=== PATIENT | male | born 2000 | race African-American/Black ===

== ENCOUNTER 2021-02-13 16:12 | Emergency (ER) | payer OTHER ==
[2021-02-13] MEDS ORDERED: Ondansetron ODT 4 MG TAB ONE (16:41)
== END 2021-02-13 16:45 | disposition home or self-care (01) ==
LOC: MADERS 16:12
DX: T67.5XXA Heat exhaustion, unspecified, initial encounter (principal); F17.210 Nicotine dependence, cigarettes, uncomplicated
CPT/HCPCS: 99283; Q0162

== ENCOUNTER 2021-03-06 14:36 | Emergency (ER) | payer OTHER, SELFPAY | END 2021-03-06 15:28 | disposition home or self-care (01) | LOC: MADERS 14:36 | DX: L25.5 Unspecified contact dermatitis due to plants, except food (principal); F17.210 Nicotine dependence, cigarettes, uncomplicated | CPT/HCPCS: 99282 ==

== ENCOUNTER 2021-03-16 14:22 | Emergency (ER) | payer SELFPAY | END 2021-03-16 15:30 | disposition left against medical advice (07) | LOC: MADERS 14:22 | DX: Z53.21 Procedure and treatment not carried out due to patient leaving prior to being seen by health care provider (principal) ==

== ENCOUNTER 2021-03-25 11:47 | Emergency (ER) | payer SELFPAY | END 2021-03-25 14:00 | disposition home or self-care (01) | LOC: MADERS 11:47 | DX: E86.0 Dehydration (principal); F17.210 Nicotine dependence, cigarettes, uncomplicated | CPT/HCPCS: 99284 ==

== ENCOUNTER 2021-04-09 03:56 | Emergency (ER) | payer SELFPAY ==
[2021-04-09] MEDS ORDERED: NEOMYCIN-POLYMYXIN-HC EAR SUSP 200 DROP/10 ML BOT ONE (04:16)
== END 2021-04-09 04:39 | disposition home or self-care (01) ==
LOC: MADERS 03:56
DX: T16.1XXA Foreign body in right ear, initial encounter (principal); F17.210 Nicotine dependence, cigarettes, uncomplicated
CPT/HCPCS: 69200

== ENCOUNTER 2023-02-11 15:33 | Emergency (ER) | payer OTHER, SELFPAY ==
[2023-02-11] MEDS ORDERED: Lactated Ringer's 2,000 ML ONE (16:29)
[2023-02-11 17:01] LABS: ALT (SGPT) 32 U/L (8-55); AST (SGOT) 28 U/L (5-34); Albumin 4.9 g/dL (3.5-5.0); Alkaline Phosphatase 75 U/L (40-110); Anion Gap 20 mmol/L (10-20); BUN (Urea Nitrogen) 15 mg/dL (8.9-20.6); Bilirubin, Total 2.2 mg/dL (0.2-1.2); CK (CPK) 458 U/L (30-200); Calc. Creatinine Clearance 0 mL/min (70-130); Calcium 10.3 mg/dL (7.8-10.44); Carbon Dioxide 20 mmol/L (22-29); Chloride 102 mmol/L (98-107); Estimated GFR 85; Globulin 2.7 g/dL (2.4-3.5); Glucose 74 mg/dL (70-105); Potassium 3.9 mmol/L (3.5-5.1); Protein, Total 7.6 g/dL (6.0-8.3); Sodium 138 mmol/L (136-145)
[2023-02-11 17:12] LABS: Lymphocytes 20 % (21-51); MDiff Complete? YES; Mean Corpuscular HGB CONC 34.6 g/dL (32.0-36.0); Mean Corpuscular Hemoglobin 33.4 pg (27.0-31.0); Mean Corpuscular Volume 96.3 fl (78.0-98.0); Mean Platelet Volume 11.1 fL (7.4-10.4); Monocytes 5 % (0-10); Neutrophil 56 % (42-75); Platelet Count 241 10x3/uL (130-400); RBC Distribution Width 10.7 % (11.5-14.5); Reactive Lymphocytes 17 % (0-10); Red Blood Cell (RBC) Count 4.79 mill/uL (4.70-6.10); White Blood Cell (WBC) Count 8.5 10x3/uL (4.8-10.8)
[2023-02-11 17:13] LABS: Eosinophils 2 % (0-10); Platelet Adequacy Comment Appears Adequate
== END 2023-02-11 18:18 | disposition home or self-care (01) ==
LOC: MADERS 15:33
DX: T67.5XXA Heat exhaustion, unspecified, initial encounter (principal); E86.0 Dehydration; E80.7 Disorder of bilirubin metabolism, unspecified; F17.210 Nicotine dependence, cigarettes, uncomplicated; X32.XXXA Exposure to sunlight, initial encounter; Y93.89 Activity, other specified; Y92.69 Other specified industrial and construction area as the place of occurrence of the external cause
CPT/HCPCS: 80053; 82550; 83735; 85025; 93005; 94760; 96360; 96361; J7120

== ENCOUNTER 2024-09-14 10:30 | Emergency (ER) | payer SELFPAY | END 2024-09-14 11:34 | disposition home or self-care (01) | LOC: MADERS 10:30 | DX: S53.402A Unspecified sprain of left elbow, initial encounter (principal); F17.210 Nicotine dependence, cigarettes, uncomplicated; X50.1XXA Overexertion from prolonged static or awkward postures, initial encounter; Y99.0 Civilian activity done for income or pay | CPT/HCPCS: 99283 ==

== ENCOUNTER 2025-07-29 13:22 | Emergency (ER) | payer BC ==
[~2025-07-29 13:22] MED LIST: Iopamidol 370 76% 100 ML VIAL ONE
[2025-07-29 14:43] LABS: #Basophils 0.2 thou/uL (0.0-0.2); #Eosinophils 0.2 thou/uL (0.0-0.7); #Lymphocytes 2.0 thou/uL (1.20-3.40); #Monocytes 0.8 thou/uL (0.11-0.59); #Neutrophils 7.7 thou/uL (1.40-6.50); %Basophils 1.5 % (0.0-1.0); %Eosinophils 1.8 % (0.0-10.0); %Lymphocytes 18.5 % (21.0-51.0); %Monocytes 7.3 % (0.0-10.0); %Neutrophils 70.9 % (42.0-75.0); Hematocrit 42.8 % (42.0-52.0); Hemoglobin 14.1 g/dL (14.0-18.0); Mean Corpuscular Hemoglobin 32.1 pg (27.0-31.0); Mean Corpuscular Volume 97.4 fl (78.0-98.0); Platelet Count 280 10x3/uL (130-400); Red Blood Cell (RBC) Count 4.39 mill/uL (4.70-6.10); White Blood Cell (WBC) Count 10.8 10x3/uL (4.8-10.8)
[2025-07-29 14:44] LABS: ALT (SGPT) 11 U/L (Less than 45); AST (SGOT) 15 U/L (11-34); Albumin 3.9 g/dL (3.1-4.5); Alkaline Phosphatase 67 U/L (40-110); Anion Gap 16 mmol/L (10-20); BUN (Urea Nitrogen) 11 mg/dL (8.9-20.6); Bilirubin, Total 1.1 mg/dL (0.3-1.2); Calc. Creatinine Clearance 0 mL/min (70-130); Calcium 9.4 mg/dL (7.8-10.44); Carbon Dioxide 24 mmol/L (22-29); Chloride 108 mmol/L (98-107); Globulin 3.1 g/dL (2.4-3.5); Glucose 93 mg/dL (70-105); Potassium 3.7 mmol/L (3.5-5.1); Sodium 144 mmol/L (136-145)
[2025-07-29] MEDS ORDERED: Lidocaine 1% w/Epinephrine 1:100K 20 ML VIAL ONE (15:12)
== END 2025-07-29 15:40 | disposition home or self-care (01) ==
LOC: MADERS 13:22
DX: L02.31 Cutaneous abscess of buttock (principal); F17.210 Nicotine dependence, cigarettes, uncomplicated
CPT/HCPCS: 10060; 72193; 80053; 85025; 87070; 87205; Q9967

== ENCOUNTER 2025-07-30 17:18 | Emergency (ER) | payer BC | END 2025-07-30 17:27 | disposition left against medical advice (07) | LOC: MADERS 17:18 | DX: Z53.21 Procedure and treatment not carried out due to patient leaving prior to being seen by health care provider (principal) ==